=== PATIENT | male | born 1970 | race Caucasian/White ===

== ENCOUNTER 2024-10-21 11:19 | Day surgery (SDC) | payer BC ==
[2024-10-20 10:43] VITALS: BMI 27.8
[2024-10-21 12:48] VITALS: TEMP 97.6
[2024-10-21] MEDS: IV FLUID CONTINUATION 1,000 ML IV ONE (12:49)
[2024-10-21] MEDS: LACTATED RINGERS 1,000 ML IV SCH (12:57)
[2024-10-21] MEDS ORDERED: PROPOFOL 10 MG/ML 20 ML VIAL IV ONE (13:23)
--- NOTE | 2024-10-21 13:40 | P.PCN ---
Date of Procedure: 10/21/24 Procedure(s) Performed: BRIEF HISTORY: Patient is a 54-year-old pleasant white male scheduled for an elective colonoscopy as a part of screening for colon cancer and positive Cologuard PROCEDURE PERFORMED: Colonoscopy with snare polypectomy. PREOPERATIVE DIAGNOSIS: Screening for colon cancer and positive Cologuard. IV sedation per Anesthesia. PROCEDURE: After informed consent was obtained, the patient, was brought into the endoscopy unit. IV sedation was administered by Anesthesia under continuous monitoring. Digital rectal examination was normal. Initially the Olympus CF-160 flexible video colonoscope was then inserted in the rectum, gradually advanced into the cecum without any difficulty. Careful examination was performed as the scope was gradually being withdrawn. Ileocecal valve and the appendiceal orifice were visualized and appeared normal. Prep was excellent. Mucosa of the cecum appeared normal. In the ascending colon there were 5 polyps small measuring between 3 to 4 mm in size status post cold snare polypectomy. In the transverse colon there was a 6 mm polyp removed by cold snare polypectomy. In the descending colon there was a 5 mm polyp removed by cold snare polypectomy. And in the proximal rectum there was a 7 mm polyp removed by cold snare polypectomy. Rest of the rectum appeared normal. Retroflexion was performed in the rectum and no lesions were seen. The patient tolerated the procedure well. IMPRESSION: 5 polyps in the ascending colon measuring between 3 to 4 mm in size status post cold snare polypectomy 6 mm transverse colon polyp status post cold snare polypectomy 5 mm descending colon polyp status post cold snare polypectomy 7 mm rectal polyp status post cold snare polypectomy RECOMMENDATIONS: Findings of this examination were discussed with the patient as well as his family.. He was advised to follow-up with the biopsy results. If the biopsy reveals adenoma he can have repeat colonoscopy 3 years.
[2024-10-21 14:08] VITALS: BP 119/66; PULSE 64; RESP 16
== END 2024-10-21 14:39 | disposition home or self-care (01) ==
LOC: ORWHC2ENDO 11:19
PROVIDERS: ATTEND Internal Medicine Gastroenterology
DX: D12.2 Benign neoplasm of ascending colon (principal); D12.3 Benign neoplasm of transverse colon; D12.4 Benign neoplasm of descending colon; D12.8 Benign neoplasm of rectum; K21.9 Gastro-esophageal reflux disease without esophagitis
CPT/HCPCS: 88305; 45385; J2704